=== PATIENT | female | born 1960 | race Two or more races ===

== ENCOUNTER 2024-02-28 13:28 | Emergency (ER) | payer OTHER ==
[~2024-02-28] VITALS: Ht 152.4 cm; Wt 63.5 kg
[2024-02-28 17:56] LABS: HEMATOCRIT 41.3 % (36.0-45.00); HEMOGLOBIN 14.2 g/dL (12.0-15.00); MEAN CELL VOLUME 93.8 fL (80.00-100.00); MEAN CORPUSCULAR HEMOGLOBIN 32.2 pg (27.00-32.0); MEAN CORPUSCULAR HGB CONC 34.3 g/dl (32.0-36.0); PLATELET COUNT 280 K/uL (150-450); RED BLOOD COUNT 4.41 M/uL (4.00-6.00); RED CELL DISTRIBUTION WIDTH 13.9 % (11.5-14.5)
[2024-02-28 18:10] LABS: PH,URINE 6.5 (5.0-8.0); URINE APPEARANCE Clear; URINE BILIRRUBIN Negative (NEGATIVE); URINE BLOOD Negative; URINE COLOR Yellow; URINE GLUCOSE Negative (NEGATIVE); URINE LEUKOCYTE Small; URINE NITRATE Negative; URINE PROTEIN Negative (NEGATIVE); URINE UROBILINOGEN 0.2 E.U./dl
[2024-02-28 18:13] LABS: URINE EPITHELIAL CELLS 6.1 uL (0.0-38.8); URINE RBC 12.6 uL (0.0-20.8)
== END 2024-02-28 19:42 | disposition home or self-care (01) ==
LOC: ER 13:29
DX: K57.30 Diverticulosis of large intestine without perforation or abscess without bleeding (principal); Z20.822 Contact with and (suspected) exposure to COVID-19; Z88.8 Allergy status to other drugs, medicaments and biological substances